=== PATIENT | male | born 1955 | race Caucasian/White ===

== ENCOUNTER 2024-08-21 14:34 | Inpatient (IN) | payer MEDICARE, SELFPAY ==
[2024-08-21] VITALS (9 sets, daily range): BP systolic 140–221; BP diastolic 84–115; PULSE 73–96; RESP 12–20; TEMP 36.5–36.6; O2SAT 91–100
--- NOTE | ~2024-08-21 | XR_ITS ---
EXAMINATION: XR chest 2V Exam Date/Time: 08/21/2024 15:06 CDT HISTORY: chest pain Comparison: 01/17/2024. RESULT: Lines, tubes, and devices: None. Lungs and pleura: Mild streaky bibasilar atelectasis/scar, otherwise clear. Lateral view limited by low volumes and motion. Cardiomediastinal silhouette: Stable. Other: No acute osseous or upper abdominal finding. IMPRESSION: No acute cardiopulmonary process. Reviewed, dictated and finalized at location K.
--- NOTE | ~2024-08-21 | CT_ITS ---
EXAMINATION: CTA chest PE protocol DATE: 08/21/2024 20:29 INDICATION: CP TECHNIQUE: Computed tomography angiography (CTA) of the chest was performed with 100 mL Omnipaque-350 intravenous contrast timed to evaluate the pulmonary arteries. Coronal maximum intensity projection 3D-reconstructions were created by the technologist. The dose-length product (DLP) was 918.29 mGy-cm. Automated exposure control and iterative reconstruction technique were employed. COMPARISON: X-ray chest, same date; CT chest 04/22/2012. FINDINGS: Lung parenchyma and airways: Minimal medial right middle lobe and lingular atelectasis/scar. Scar in the medial right lower lobe. Patent airways. Pleura: Unremarkable. Thoracic inlet, axillae and chest wall: Unremarkable. Thoracic aorta: No significant dilation. No dissection. Mediastinum: Normal. Heart and pericardium: Mitral and aortic valve calcifications. Coronary artery calcifications: Moderate. Upper abdomen: No significant finding. Bones: No acute osseous finding. Pulmonary arteries: Study quality: Adequate. No pulmonary emboli detected. IMPRESSION: No CT evidence of acute pulmonary embolus. No acute process detected in the chest. Reviewed, dictated and finalized at location K.
--- NOTE | 2024-08-21 14:40 | ECG_ITS ---
Test Date: 2024-08-21 14:42:57 Measurements Intervals [place] Rate: 94 P: 2 WV: 122 QRS: 34 QRSD: 101 T: 67 QT: 359 QTc: 449 Interpretive Statements SINUS RHYTHM BASELINE ARTIFACT- I, II, III, AVR, AVL, V4-V6 NORMAL ECG No previous ECG available for comparison Electronically Signed On 08-21-2024 14:52:34 CDT by Lit Osorio D.O.
[2024-08-21 14:52] LABS: Basophils Percent Auto 0.4 % (0.2-1.2); Eosinophils Absolute Auto 0.2 K/mm3 (0-0.3); Hematocrit 45.3 % (42.0-52.0); Hemoglobin 15.7 g/dL (14.0-18.0); Immature Granulocyte Absolute 0.11 K/mm3 (0.00-0.031); Lymphocytes Absolute Auto 1.73 K/mm3 (0.9-3.2); Mean Corpuscular HGB Conc 34.7 g/dl (32-36); Mean Corpuscular Hemoglobin 32.3 pg (26-34); Mean Corpuscular Volume 93.2 fl (80-100); Monocytes Absolute Auto 0.9 K/mm3 (0.1-0.6); Neutrophils Absolute Auto 7.9 K/mm3 (1.3-6.7); Neutrophils Percent Auto 72.6 % (45.5-73.1); Platelet Count Result 218 k/mm3 (150-375); Red Blood Count 4.86 M/mm3 (4.6-6.20); Red Cell Distribution Width 12.9 % (11.5-14.5); White Blood Count 10.8 K/mm3 (4.5-10.0)
[2024-08-21 15:07] LABS: INR 0.9; Prothrombin Time 12.4 Seconds (11.1-14.7)
[2024-08-21 15:08] LABS: Alanine Aminotransferase 27 U/L (6-50); Albumin Level 4.3 g/dL (3.5-5.1); Alkaline Phosphatase 107 U/L (38-126); Anion Gap 10 mmol/L (4-12); Aspartate Amino Transferase 27 U/L (17-59); Bilirubin,Total 0.5 mg/dL (0.2-1.3); Blood Urea Nitrogen 17 mg/dL (9-20); Calcium 9.3 mg/dL (8.4-10.2); Carbon Dioxide 26 mmol/L (22-30); Chloride 102 mmol/L (98-107); Estimated CRCL calculation 105 ml/min; Estimated Glomerular Filt Rate > 60; Glucose 236 mg/dL (65-110); Lipase 146 U/L (23-300); Partial Thromboplastin Time 24.5 Seconds (22.3-36.8); Potassium 4.1 mmol/L (3.4-5.0); Sodium 138 mmol/L (137-145)
[2024-08-21 15:20] LABS: Troponin I 0.021 ng/mL (0.000-0.034)
--- NOTE | 2024-08-21 18:00 | ECG_ITS ---
Test Date: 2024-08-21 21:47:44 Measurements Intervals [place] Rate: 84 P: 46 ME: 143 QRS: 50 QRSD: 102 T: 90 QT: 379 QTc: 449 Interpretive Statements SINUS RHYTHM SUBTLE INFERIOR ST ELEVATION MYOCARDIAL INJURY- ACUTE WITH RECIPROCAL ST DEPRESSION IN HIGH LATERAL LEADS ABNORMAL ECG Compared to ECG 08/21/2024 14:42:57 STEMI NOW PRESENT Electronically Signed On 08-22-2024 08:56:47 CDT by Lit Osorio D.O.
[2024-08-21 18:54] LABS: Troponin I 0.086 ng/mL (0.000-0.034)
--- NOTE | 2024-08-21 19:18 | ED.CHESTPAIN ---
HPI - Chest Pain General Chief Complaint: Chest Pain Stated Complaint: chest pain Time Seen by Provider: 08/21/24 19:05 History of Present Illness HPI narrative: Male with a past medical history significant for unprovoked DVT not presently on any anticoagulation, hypertension not present antihypertensive medications, GERD. Today patient presents to the emergency department a chief complaint of chest pain that is burning sensation, he was sitting at rest watching TV when he started having worsening chest pain and chest discomfort. This was associated with belching, nauseous without vomiting, shortness of breath but no diaphoresis. Symptoms are ongoing for several hours prompting him to seek medical evaluation at the ER. Denies any recent surgeries or long travel, notes that with food intake the symptoms got worse, denies any symptoms such as headache, vision change, neck pain, jaw pain, arm pain, extremity pain or weakness, neurological complaints. Was otherwise in his normal state of health. Related Data Home Medications Medication Instructions Recorded Confirmed fluticasone propionate 50 2 spray intranasal DAILY 07/26/22 08/22/24 mcg/actuation nasal spray,suspension (Flonase Allergy Relief) Allergies Allergy/AdvReac Type Severity Reaction Status Date / Time shellfish derived Allergy Intermediate Anaphylaxis Verified 08/21/24 19:07 doxycycline AdvReac Intermediate Unknown Verified 08/21/24 19:07 Review of Systems Review of Systems: As reviewed above in HPI [facility] Past Medical History Medical History (Updated 08/22/24 @ 06:05 by Erika Magaña DO) Allergic rhinitis Asthma DVT (deep venous thrombosis) (~2018) GERD (gastroesophageal reflux disease) Herpes labialis Surgical History Surgical History (Updated 08/22/24 @ 05:59 by Erika Magaña DO) History of heart artery stent (08/21/24) subtotal occlusion with placement of distal RCA drug-elutingstent Social History Social History (Updated 08/22/24 @ 06:02 by Erika Magaña DO) Social History: Code status: Full code Surrogate decision maker: Smoking status: Never smoker Alcohol intake: current Drinks per week: 2 Substance use: never Do You Feel Safe in your Home?: Yes Lack of Transportation: No Lack of Food: Never True Current Housing: I Have Housing Concerned About Future Housing: No Difficulty Paying Gas/Electric Bills: No Difficulty Paying for Meds: No Currently Unemployed: No Education: Associate Degree Difficulty w/ Childcare or Family Care: No Occupation/Education: retired Spiritual care concerns: No Agree to blood products: Yes Exam Narrative: GENERAL: Uncomfortable appearing but not in any acute distress, conversing in full sentences HEAD: [Normocephalic, atraumatic.] EYES: [PERRLA and EOMI.] ENT: Nares clear, no rhinorrhea or epistaxis. Mucous membranes moist. NECK: Supple. CHEST: [Clear to auscultation. No respiratory distress.] HEART: [Regular rate and rhythm]. No murmur heard. [Normal peripheral pulses.] ABDOMEN: [Soft, nondistended], [nontender], [No rigidity or guarding] EXTREMITIES: Normal range of motion. [No edema.] SKIN: Warm, dry, no rash. NEURO: [No focal deficits]. Alert and oriented [x3.] PSYCH: [Normal mood and affect.] Course Vital Signs Vital signs: Vital Signs Temperature 36.6 C 08/21/24 14:37 Pulse Rate 96 08/21/24 14:37 Respiratory Rate 16 08/21/24 14:37 Blood Pressure 217/84 H 08/21/24 14:37 Pulse Oximetry 98 08/21/24 14:37 Oxygen Delivery Room Air 08/21/24 14:37 Temperature 36.4 C 08/22/24 04:00 Pulse Rate 65 08/22/24 06:00 Respiratory Rate 15 08/22/24 06:00 Blood Pressure 137/91 H 08/22/24 07:00 Pulse Oximetry 98 08/22/24 06:00 Oxygen Delivery Room Air 08/22/24 04:00 Oxygen Flow Rate 2 08/21/24 22:24 MDM - Chest Pain MDM Narrative Medical decision making narrative:
[2024-08-21] MEDS: MORPHINE SULFATE (*CRX) 4 MG/ML INJ IV PUSH (19:59)
[2024-08-21] MEDS: hydrALAZINE HCL 20 MG/ML VIAL 10 MG IV PUSH (20:02)
[2024-08-21] MEDS: LACTATED RINGERS 1,000 ML 999 ML IV CONT (20:12)
[2024-08-21] MEDS: LORazepam (*CRX) 1 MG TABLET PO (20:39)
[2024-08-21] MEDS: HYDROmorphone HCL INJ (*CRX) 1 MG/ML SYR IV PUSH (20:40)
[2024-08-21] MEDS: ASPIRIN 325 MG TABLET PO (20:54)
[2024-08-21] MEDS: HEPARIN SOD/D5W 100 UNITS/ML 25,000 UNITS/250 ML BAG 10 UNITS IV CONT (21:32)
[2024-08-21 21:58] LABS: Basophils Absolute Auto 0.1 K/mm3 (0.0-0.1); Basophils Percent Auto 0.5 % (0.2-1.2); Eosinophils Absolute Auto 0.2 K/mm3 (0-0.3); Eosinophils Percent Auto 1.6 % (0-4.4); Hematocrit 46.6 % (42.0-52.0); Hemoglobin 15.7 g/dL (14.0-18.0); Immature Granulocyte Absolute 0.12 K/mm3 (0.00-0.031); Immature Granulocyte Percent A 1.1 % (0-0.5); Lymphocytes Absolute Auto 1.73 K/mm3 (0.9-3.2); Lymphocytes Percent Auto 15.8 % (18.3-44.2); Mean Corpuscular HGB Conc 33.7 g/dl (32-36); Mean Corpuscular Hemoglobin 31.3 pg (26-34); Monocytes Absolute Auto 1.2 K/mm3 (0.1-0.6); Monocytes Percent Auto 10.9 % (2.6-8.5); Neutrophils Absolute Auto 7.7 K/mm3 (1.3-6.7); Neutrophils Percent Auto 70.1 % (45.5-73.1); Platelet Count Result 228 k/mm3 (150-375); Red Blood Count 5.01 M/mm3 (4.6-6.20)
[2024-08-21 22:11] LABS: INR 0.9; Prothrombin Time 12.7 Seconds (11.1-14.7)
[2024-08-21 22:12] LABS: Partial Thromboplastin Time 24.4 Seconds (22.3-36.8)
--- NOTE | 2024-08-21 22:16 | PC.NURSE ---
BP 225/115. per [facility]OR[facility] Dr. Ochoa pt to receive 20mg labetolol.
[2024-08-21] MEDS: fentaNYL CITRATE INJ (*CRX) 100 MCG/2 ML VIAL IV PUSH (22:20)
--- NOTE | 2024-08-21 22:21 | PC.NURSE ---
STEMI called. Crash cart at bedside, 2nd IV access obtained, pt groin area shaved. 20mg Labetolol given.
[2024-08-21 22:37] LABS: Troponin I 0.158 ng/mL (0.000-0.034)
[2024-08-21] MEDS: LABETALOL HCL INJ 100 MG/20 ML VIAL (22:49)
--- NOTE | 2024-08-21 22:59 | PM.IMHP ---
H&P: HPI History of Present Illness Date/Time: 08/21/24 22:59 Chief Complaint: Chest pain, off and on for about 12 hours Narrative: 69-year-old male with history of uncontrolled hypertension; no known prior cardiac history. Patient presented to [facility] Emergency Room on 08/21/2024 with complaints of intermittent chest pain that started about 11:00 a.m. in the morning. His symptoms were associated with shortness of breath, dizziness without syncope. He denies any prior cardiac history. His initial EKG in the emergency room showed sinus rhythm without acute ST segment abnormality. Patient continued to have chest pain in the emergency room, and subsequent EKG on my personal interpretation showed sinus rhythm with ST elevation in the inferior leads with reciprocal ST depression. ER physician called me, and we activated the cardiac catheterization lab. chest x-ray was unremarkable. CTA chest was reportedly negative for aortic dissection or PE. At the time of evaluation the lab coordinator, patient had ongoing mild chest discomfort. Review of Systems Review of Systems: General: Negative for fever, chills, fatigue Psychological: Negative for anxiety, depression Ophthalmic: negative for loss of vision ENT: Negative for epistaxis, headaches Allergy and immunology: Negative for hives, nasal congestion Hematologic and lymphatic: Negative for overt bleeding problems Endocrine: Negative for hot flashes, palpitations Respiratory: Negative for cough, hemoptysis Cardiovascular: Positive for chest pain, shortness of breath, dizziness without syncope Gastrointestinal: Negative for abdominal pain, nausea, vomiting, hematochezia Musculoskeletal: Negative for myalgia, joint pains Neurological: Negative for weakness Dermatological: Negative for rash, skin discoloration PMFSH Past Medical History Medical History Allergic rhinitis Asthma DVT (deep venous thrombosis) GERD (gastroesophageal reflux disease) Herpes labialis Social History Social History Smoking status: Never smoker Alcohol intake: current Substance use: never Occupation/Education: retired Agree to blood products: Yes Meds Home Medications and Allergies Home Medications Medication Instructions Recorded Confirmed Type fluticasone propionate 50 2 spray intranasal DAILY 07/26/22 04/15/24 History mcg/actuation nasal spray,suspension (Flonase Allergy Relief) naproxen 500 mg tablet See Rx Instructions .Route 10/22/22 04/15/24 Rx .COMPLEX #60 tabs albuterol sulfate 90 mcg/actuation 2 inh inhalation Q4H PRN shortness 01/17/24 04/15/24 Rx aerosol inhaler of breath or wheezing #8.5 grams fluticasone 250 mcg-salmeterol 50 See Rx Instructions .Route 02/05/24 04/15/24 Rx mcg/dose blistr powdr for .COMPLEX #60 ea inhalation (Wixela Inhub) levofloxacin 750 mg tablet 750 mg PO DAILY #7 tabs 04/15/24 04/15/24 Rx montelukast 10 mg tablet 10 mg PO QHS #90 tabs 04/15/24 04/15/24 Rx (Singulair) acyclovir 800 mg tablet 800 mg PO BID #60 tabs 07/28/24 Rx levocetirizine 5 mg tablet See Rx Instructions .Route 08/12/24 Rx .COMPLEX #90 tabs levofloxacin 750 mg tablet 750 mg PO DAILY #7 tabs 08/13/24 Rx methylprednisolone 4 mg tablets in See Rx Instructions PO PER PKG DIR 08/13/24 Rx a dose pack (Medrol (Timothy)) #21 ea benzonatate 100 mg capsule 100 mg PO TID PRN cough #30 caps 08/17/24 Rx Allergies Allergy/AdvReac Type Severity Reaction Status Date / Time shellfish derived Allergy Intermediate Anaphylaxis Verified 08/21/24 19:07 doxycycline AdvReac Intermediate Unknown Verified 08/21/24 19:07 Vital Signs Vital Signs - 24 hr 08/21/24 14:37 08/21/24 19:30 08/21/24 19:31 Temperature 36.6 C Pulse Rate 96 86 86 Respiratory Rate 16 14 Blood Pressure 217/84 H 215/112 H Pulse Oximetry 98 98 Oxygen Delivery [place]
[2024-08-22] VITALS (25 sets, daily range): BP systolic 110–161; BP diastolic 72–130; PULSE 61–78; RESP 13–24; TEMP 36.4–37; O2SAT 96–100; BMI 38.5
--- NOTE | 2024-08-22 | ECHO_ITS ---
Patient Info Name: Duy Miller Age: 69 years : 1955 Gender: Male Ht: 72 in Wt: 273 lbs BSA: 2.55 m2 HR: 64 bpm BP: 132 / 98 mmHg Heart Rhythm: Sinus Rhythm Technical Quality: Good Exam Date: 08/22/2024 8:51 AM Exam Location: Echo Lab Patient Status: Inpatient Admit Date: 08/21/2024 Staff Ordering Physician: Ger Muller MD Airline Lounge Receptionist: Sita Bolden RDCS Attending Provider: Erika Magaña DO Referring Physician: Renzo LI; Exam Type: CA echo doppler color flow Study Info Indications - CP Complete two-dimensional, color flow and Doppler transthoracic echocardiogram is performed. Summary 1. Complete two-dimensional, color flow and Doppler transthoracic echocardiogram is performed. 2. Mild LV enlargement, moderate LVH; normal LV systolic function, ejection fraction measured at 57%. Grade 1 diastolic dysfunction. Mild left atrial enlargement. Mitral annular calcification, trace MR. Aortic valve sclerosis, no hemodynamically significant stenosis. Trace TR. RVSP 27 mmHg. Left Ventricle Left ventricular chamber dimension is mildly enlarged. There is moderately increased left ventricular wall thickness. The left ventricular diastolic function is grade I diastolic dysfunction. Right Ventricle Right ventricular chamber dimension is normal. Right ventricular systolic function is normal. Left Atria Left atrial chamber dimension is mildly enlarged. Right Atria Right atrial chamber dimension is normal. Aortic Valve There is mild aortic valve sclerosis. There is no aortic valve stenosis. Pulmonic Valve The pulmonic valve is not well visualized. Mitral Valve There is trace mitral valve regurgitation. The mitral valve annulus is mildly calcified. Tricuspid Valve The tricuspid valve leaflets are normal. There is trace tricuspid valve regurgitation. Pericardium/Pleural The pericardium appears normal. Inferior Vena Cava Normal inferior vena cava with >50% collapse upon inspiration consistent with normal right atrial pressure, 10 mmHg. Aorta There is mild aortic atherosclerosis. Left Ventricular Outflow Tract Name Value Normal LVOT 2D LVOT Diameter 2.2 cm LVOT Doppler LVOT Peak Gradient 5 mmHg LVOT Mean Gradient 3 mmHg LVOT VTI 24 cm LVOT VTI/AV VTI Ratio 0.8 LVOT Stroke Volume 86 ml LVOT CO 5.5 l/min LVOT CI 2.1 l/min/m2 Pulmonic Valve Name Value Normal PV Doppler PV Peak Gradient 3 mmHg Mitral Valve Name Value Normal MV Doppler
--- NOTE | 2024-08-22 00:02 | WPDCARDPROC ---
Cardiac Cath Procedure Note Date of procedure:: 08/22/24 Performing physician:: Seymour Limon MD Procedure Procedure note:: CARDIAC CATHETERIZATION AND PERCUTANEOUS CORONARY INTERVENTION REPORT DATE OF PROCEDURE: 08/21/2024 INDICATION FOR PROCEDURE: acute coronary syndrome /inferior ST-elevation NE BRIEF CLINICAL HISTORY: 69-year-old male with history of uncontrolled hypertension; no known prior cardiac history. Patient presented to [facility] Emergency Room on 08/21/2024 with complaints of intermittent chest pain that started about 11:00 a.m. in the morning. His symptoms were associated with shortness of breath, dizziness without syncope. He denied any prior cardiac history. His initial EKG in the emergency room showed sinus rhythm without acute ST segment abnormality. Patient continued to have chest pain in the emergency room, and subsequent EKG showed sinus rhythm with ST elevation in the inferior leads with reciprocal ST depression. ER physician called me, and we activated the cardiac catheterization lab. chest x-ray was unremarkable. CTA chest was reportedly negative for aortic dissection or PE. At the time of evaluation the lab support technician, patient had ongoing mild chest discomfort. Benefits and risks of the procedure were discussed with the patient in depth, and informed consent was obtained prior to the procedure. Risks of the procedure include but are not limited to vascular complications including groin hematoma, retroperitoneal bleed, vessel perforation; periprocedural NE, cardiac arrhythmias, stroke, contrast induced nephropathy, and . After discussing all the benefits, risks and alternatives, patient was willing to proceed with the procedure. PROCEDURES PERFORMED: 1. Emergent Left heart catheterization- Selective left and right coronary angiogram; left ventriculogram and hemodynamic assessment 2. Primary Percutaneous coronary intervention- a) balloon angioplasty and stenting of subtotal occlusion in the distal RCA using a 3.25 x 18 mm Xience everolimus eluting stent; b) intravascular ultrasound -IVUS of right coronary artery 3. Deployment of Mynx hemostatic device 4. Moderate sedation-CPT code 65987 and beyond MODERATE SEDATION: Midazolam 1 mg; fentanyl 25 mcg. Start time 2310 , Stop time 2347 ; Total [id number] time 37 minutes; Patricia Plascencia RN was trained observer for moderate sedation. ACCESS SITE: Right common femoral artery PROCEDURE NOTE: patient was emergently brought to catheterization lab and prepped and draped in a usual sterile manner. After local anesthesia with lidocaine, right common femoral artery access was taken with micropuncture needle followed by insertion of a 6 Colombian sheath. Selective left and right coronary angiogram was performed using 5 Colombian JL4 and 6 Colombian JR4 guide catheters respectively. Orthogonal views were taken. The JR4 guide catheter advanced in the LV cavity during attempted RCA engagement, LV pressure measured followed by LV gram using minimal dye. Gradient across aortic valve measured on the pullback. After completion of procedure, Mynx vascular closure device was deployed with good hemostasis. Patient tolerated procedure well without any immediate procedure related complications. FINDINGS: LEFT MAIN CORONARY: large caliber vessel, no angiographic significant focal stenosis LEFT ANTERIOR DESCENDING ARTERY: medium to large caliber vessel, minor plaque in the mid segment, becomes tortuous in the distal segment. No significant focal stenosis. Diagonal branches are small to medium caliber tortuous vessels. LEFT CIRCUMFLEX ARTERY: Large caliber, codominant vessel. Gives rise to tortuous medium to large caliber OM1 branch and medium caliber, tortuous LPDA. There is high-grade of 80-90% stenosis in the mid-distal segment of the LCX just proximal to the origin of the LPDA. RIGHT CORONARY ARTERY: Medium caliber vessel, tortuous, minor plaque in t
[2024-08-22] MEDS: SODIUM CHLORIDE 0.9% IV 1,000 ML 125 ML IV CONT (00:18)
--- NOTE | 2024-08-22 00:31 | ECG_ITS ---
Test Date: 2024-08-22 00:31:01 Measurements Intervals [place] Rate: 67 P: 24 VT: 140 QRS: 47 QRSD: 98 T: 80 QT: 436 QTc: 463 Interpretive Statements SINUS RHYTHM BORDERLINE ST-T WAVE ABNORMALITY- HIGH LATERAL LEADS BASELINE ARTIFACT- AVR, AVL, AVF BORDERLINE ECG Compared to ECG 08/21/2024 21:47:44 STEMI NO LONGER PRESENT Electronically Signed On 08-23-2024 08:59:43 CDT by Lit Osorio D.O.
[2024-08-22] MEDS: LOSARTAN POTASSIUM 25 MG TABLET PO ×2 (01:26→09:07)
[2024-08-22] MEDS: METOPROLOL TARTRATE 25 MG TABLET PO ×3 (01:27→20:21)
[2024-08-22] MEDS: ATORVASTATIN 40 MG TABLET 80 MG PO ×2 (01:27→20:21)
[2024-08-22 01:28] LABS: Hemoglobin A1C 6.3 % (<5.7)
--- NOTE | 2024-08-22 02:33 | ADMGEN ---
This patient, Duy Miller, was admitted to Intensive Care Unit-6 at 0018 from the chemical laboratory technician. Patient/family oriented to hospital policies and general routines including ID bracelet, bed and alarms, visiting hours, pain management, procedures, bathroom and other care routines, personal items, smoking policy, room service/diet, and visiting hours. Information on how to activate the Rapid Response Team has been discussed. Patient/Family are encouraged to report perceived risks to care and to ask questions if they do not understand what they are told or what they should do.
[2024-08-22 04:05] LABS: MRSA (PCR) NOT DETECTED (NOT DETECTE)
[2024-08-22 04:16] LABS: Basophils Percent Auto 0.4 % (0.2-1.2); Eosinophils Absolute Auto 0.1 K/mm3 (0-0.3); Eosinophils Percent Auto 1.2 % (0-4.4); Hematocrit 41.1 % (42.0-52.0); Hemoglobin 14.2 g/dL (14.0-18.0); Immature Granulocyte Absolute 0.06 K/mm3 (0.00-0.031); Immature Granulocyte Percent A 0.6 % (0-0.5); Lymphocytes Absolute Auto 1.55 K/mm3 (0.9-3.2); Lymphocytes Percent Auto 15.9 % (18.3-44.2); Mean Corpuscular HGB Conc 34.5 g/dl (32-36); Mean Corpuscular Volume 92.6 fl (80-100); Mean Platelet Volume 9.9 fl (7.4-10.4); Monocytes Percent Auto 10.2 % (2.6-8.5); Neutrophils Percent Auto 71.7 % (45.5-73.1); Platelet Count Result 196 k/mm3 (150-375); Red Blood Count 4.44 M/mm3 (4.6-6.20); White Blood Count 9.8 K/mm3 (4.5-10.0)
[2024-08-22 04:32] LABS: Alanine Aminotransferase 27 U/L (6-50); Albumin Level 3.7 g/dL (3.5-5.1); Alkaline Phosphatase 94 U/L (38-126); Anion Gap 4 mmol/L (4-12); Aspartate Amino Transferase 68 U/L (17-59); Bilirubin,Total 0.6 mg/dL (0.2-1.3); Blood Urea Nitrogen 10 mg/dL (9-20); Calcium 8.8 mg/dL (8.4-10.2); Carbon Dioxide 27 mmol/L (22-30); Chloride 102 mmol/L (98-107); Cholesterol 225 mg/dL (0-200); Estimated CRCL calculation 139 ml/min; Estimated Glomerular Filt Rate > 60; Glucose 135 mg/dL (65-110); HDL Direct 42 mg/dL; Potassium 4.1 mmol/L (3.4-5.0); Sodium 133 mmol/L (137-145); Triglycerides 210 mg/dL (<150)
[2024-08-22 04:40] LABS: LDL Cholesterol Direct 141 mg/dL
--- NOTE | 2024-08-22 05:48 | PM.IMHP ---
H&P: HPI History of Present Illness Date/Time: 08/22/24 05:48 Chief Complaint: Burning in my chest Narrative: 69-year-old male with past medical history essential hypertension with medication not adherent to medication regimen, GERD, urinary frequency and asthma who presented to the ER with burning chest pain While walking back from the mailbox. In hindsight the patient states that he likely has been having symptoms of dyspnea on exertion for at least 3-5 weeks. He blamed the symptoms on his insurance not paying for his usual inhalers. Dyspnea on exertion has been getting progressively worse. His son had commenced him to start swimming for exercise. Despite continuing with his exercise efforts multiple times a week patient was not making progress in his tolerance of activity. In fact his tolerance for exercise had been declining instead of improving. He denied having any palpitations, diaphoresis, lightheadedness or loss of consciousness. However yesterday when walking back for mailbox he developed a burning type chest pain around 11:00. As the day progressed his chest pain got progressively worse and was unrelenting. He felt quite unwell before he finally consented to come to the ER. The pain was worse with activity and was relieved when he was resting in under the air conditioning. He denies any associated nausea or vomiting. The patient reported they to not take blood pressure medications could he does not like how they make him feel. He has been having a weaker urinary stream and does have to get up to go to the bathroom at least 3 times a night. He also has some occasional dribbling of urine. He reports he has not been checked for BPH. When nursing staff tried to place Ellison catheter after his cardiac catheterization they were unable to place the Ellison catheter. Patient denies any dysuria, hematuria. He denies any changes in bowel habits, hematochezia or melena. His does reports the patient snores and she has witnessed episodes of gasping. The patient reports that he he snore sometimes so loudly that he wakes himself from sleep or startles himself awake. He does frequently have difficulty maintaining sleep. He reports that he has not had a return of his chest pain since coming back from the geotechnical laboratory technician. He does not have any significant family history for coronary artery disease. He is a lifelong nonsmoker. He does drink somewhat frequently but still in moderation. He denies illicit substance use. Review of Systems Review of Systems: 12 systems were reviewed with pertinent positives and negatives per HPI. Except as documented in the HPI, all other systems were reviewed and are negative. [facility] Past Medical History Medical History (Updated 08/22/24 @ 08:10 by Erika Magaña DO) Allergic rhinitis Asthma DVT (deep venous thrombosis) (~2018) GERD (gastroesophageal reflux disease) Herpes labialis Obesity (BMI 30-39.9) Surgical History Surgical History (Updated 08/22/24 @ 05:59 by Erika Magaña DO) History of heart artery stent (08/21/24) subtotal occlusion with placement of distal RCA drug-elutingstent Social History Social History (Updated 08/22/24 @ 08:11 by Erika Magaña DO) Social History: He lives at home with his of over 40 years. They have 1 son. He is a business services specialist sales. He is a lifelong nonsmoker. He does drink about 30 alcoholic beverages a month sometimes more. He denies history of illicit substance use. Code status: Full code Surrogate decision maker: Smoking status: Never smoker Alcohol intake: current Drinks per week: 2 Substance use: never Do You Feel Safe in your Home?: Yes Lack of Transportation: No Lack of Food: Never True Current Housing: I Have Housing Concerned About Future Housing: No Difficulty Paying Gas/Electric Bills: No Difficulty Paying for Meds: No Currently Unemployed: No Education: Associate Degree [place]
--- NOTE | 2024-08-22 08:38 | WPDCNINT ---
Assessment and Plan Assessment and plan (1) ST elevation (STEMI) myocardial infarction: Qualifiers: Involved coronary artery: right coronary artery Qualified Code(s): I21.11 - ST elevation (STEMI) myocardial infarction involving right coronary artery Code(s): I21.3 - ST elevation (STEMI) myocardial infarction of unspecified site Status: Acute Assessment and Plan: Status post cardiac catheterization which showed Primary Percutaneous coronary intervention- a) balloon angioplasty and stenting of subtotal occlusion in the distal RCA using a 3.25 x 18 mm Xience everolimus eluting stent; b) intravascular ultrasound -IVUS of right coronary artery 3. Deployment of Mynx hemostatic device 4. Moderate sedation-CPT code 66749 and beyond Continue aspirin Brilinta metoprolol losartan and Lipitor Check echocardiogram Telemetry monitoring (2) Snoring: Code(s): R06.83 - Snoring Status: Acute Assessment and Plan: Patient was encouraged to be evaluated for BISHOP. Patient monitor hospital (3) Severe uncontrolled hypertension: Code(s): I10 - Essential (primary) hypertension Status: Acute Assessment and Plan: Blood pressures improved after procedure and resolution of chest pain (4) Alcohol abuse: Code(s): F10.10 - Alcohol abuse, uncomplicated Status: Acute Assessment and Plan: Patient was counseled and encouraged to quit or cut down on alcohol intake Plan DVT prophylaxis -SCDs in bed. I anticipate patient will ambulate today. Nutrition -diet ordered Code Status - Full Code Senior Accounting Analyst Consult Note Consult date: 08/22/24 Reason for consult: STEMI HPI: Duy Miller is a 69 year old male past history of DVT, hypertension, GERD, allergies presented to ER with chief complaint of chest pain. Patient states that he has been having session of dyspnea and chest pain over last few days but yesterday morning started having chest pain while watching TV. It was burning in quality, associated with nausea but no vomiting. He also had shortness of breath but no diaphoresis. Pain continued 4 hours with variable severity. He decided to come to the ER. Patient states the pain went to be a cardiac procedure. Workup in the ER showed GGT ST elevation in inferior leads. Patient was diagnosed with STEMI and taken to cardiac catheterization lab where he had stent placed in his RCA. Postprocedure patient admitted to ICU for further evaluation management. This time patient denies any complaints and states chest pain has completely resolved. Review of system was positive for snoring. Patient denies fever, chest pain, shortness of breath, cough, nausea vomiting, abdominal pain,, diarrhea, headache or constipation. All other systems were reviewed and were negative Review of Systems Review of Systems: All systems reviewed & are unremarkable except as noted in HPI and below (HPI) [facility] Past Medical History Medical History (Updated 08/22/24 @ 08:10 by Erika Magaña, DO) Allergic rhinitis Asthma DVT (deep venous thrombosis) (~2018) GERD (gastroesophageal reflux disease) Herpes labialis Obesity (BMI 30-39.9) Surgical History Surgical History History of heart artery stent (08/21/24) subtotal occlusion with placement of distal RCA drug-elutingstent Social History Social History (Updated 08/22/24 @ 08:42 by Homar Stratton MD) Social History: He lives at home with his of over 40 years. They have 1 son. He is a business integration analyst. He is a lifelong nonsmoker. He denies history of illicit substance use. He states he drinks 4 times a week. On a regular day he will drink 2-5 beers but on special occasions our game days he can drink up to 8-9 beers. He rarely drinks hard liquor but occasionally drinks wine. Code status: Full code Surrogate decision maker: Smoking status: Never
[2024-08-22] MEDS: ASPIRIN 81 MG ENTERIC TABLET PO (09:06)
[2024-08-22] MEDS: FLUTICASONE PROPIONATE 0.05% NA SPR 16 GM BTL (*BKC) 2 SPRAY NASAL (09:07)
[2024-08-22] MEDS: TAMSULOSIN HCL 0.4 MG CAPSULE PO (09:07)
[2024-08-22] MEDS: TICAGRELOR 90 MG TABLET PO ×2 (09:09→20:21)
--- NOTE | 2024-08-22 09:19 | PM.IMPN ---
Progress Note: A&P Assessment and Plan (1) ST elevation (STEMI) myocardial infarction: Qualifiers: Involved coronary artery: right coronary artery Qualified Code(s): I21.11 - ST elevation (STEMI) myocardial infarction involving right coronary artery Code(s): I21.3 - ST elevation (STEMI) myocardial infarction of unspecified site Status: Acute Assessment and Plan: Patient presented with chest pain. CXR was unremarkable. CTA chest was negative for aortic dissection or PE. EKG was normal but repeat EKG showing subtle inferior ST elevation with depression in the high lateral leads. Cardiology consulted for STEMI alert and patient underwent emergent LHC. Cardiac catheterization showed high-grade, hazy about 90% stenosis in the distal RCA s/p balloon angioplasty and stenting of subtotal occlusion in the distal RCA using a 3.25 x 18 mm Xience everolimus eluting stent. Also noted was a high-grade of 80-90% stenosis in the mid-distal segment of the LCX just proximal to the origin of the LPDA. Plan for staged PCI of LCx in the near future. He has preserved LV systolic function with EF about 60%. Continue aspirin, Brilinta, metoprolol, losartan, and high-dose Lipitor Check echocardiogram Telemetry monitoring (2) Severe uncontrolled hypertension: Code(s): I10 - Essential (primary) hypertension Status: Acute Assessment and Plan: BP up on admission to 221/115. He was not on anti-HTN medications on admission. Blood pressures improved after procedure and resolution of chest pain as well as starting oral medications. Continue to monitor (3) Alcohol abuse: Code(s): F10.10 - Alcohol abuse, uncomplicated Status: Acute Assessment and Plan: Patient was counseled and encouraged to quit or cut down on alcohol intake (4) Snoring: Code(s): R06.83 - Snoring Status: Acute Assessment and Plan: Patient was encouraged to be evaluated for BISHOP. Plan DVT prophylaxis -SCDs Code Status - Full Code Subjective Date/time seen: 08/22/24 09:19 Interval history: 69yo male with HTN here for chest pain. No further chest pain. Slightly SOB. No n/v. Eating okay. Exam Narrative: AF 97.6 136/72 71 21 100% ra Gen - NARD sitting up in bed finishing breakfast Chest - CTA bilaterally, nml RR CV - RRR S1/S2. Tele showing brief runs (<8 beats) of NSVT Abd - Soft, obese, NT Ext - No pedal edema. 2+ DP pulses. right femoral site without obvious hematoma Neuro - Alert and appropriate Psych - Nml mood and affect Skin - Warm and dry Objective Data Vital Signs Vital Signs: Vital Signs - 24 hr 08/21/24 14:37 08/21/24 19:30 08/21/24 19:31 Temperature 97.8 F Pulse Rate 96 86 86 Respiratory Rate 16 14 Blood Pressure 217/84 H 215/112 H Pulse Oximetry 98 98 Oxygen Delivery Room Air Oxygen Flow Rate 08/21/24 19:31 08/21/24 20:44 08/21/24 21:25 Temperature 97.7 F Pulse Rate 73 83 Respiratory Rate 20 18 Blood Pressure 171/103 H 194/105 H Pulse Oximetry 98 99 100 Oxygen Delivery Room Air Oxygen Flow Rate 08/21/24 22:24 08/21/24 22:24 08/21/24 22:32 Temperature Pulse Rate 78 78 Respiratory Rate 12 18 Blood Pressure 221/115 H 140/95 H Pulse Oximetry 91 92 98 Oxygen Delivery Nasal Cannula Oxygen Flow Rate 2 08/21/24 22:41 08/21/24 22:49 08/22/24 01:27 Temperature Pulse Rate 74 91 66 Respiratory Rate 14 Blood Pressure 157/94 H Pulse Oximetry 98 Oxygen Delivery Oxygen Flow Rate 08/22/24 00:35 08/22/24 00:30 08/22/24 00:45 Temperature 97.8 F Pulse Rate 67 70 Respiratory Rate 16 16 Blood Pressure 155/96 H 142/99 H Pulse Oximetry 97 98 Oxygen Delivery Room Air Oxygen Flow Rate 08/22/24 01:00 08/22/24 01:15 08/22/24 02:00 Temperature Pulse Rate 67 66 62 Respiratory Rate 14 16 15 Blood Pressure 148/101 H 143/94 H 156/95 H Pulse Oximetry 98 97 99 Oxygen Delivery
--- NOTE | 2024-08-22 09:59 | PC.NURSE ---
[facility] flyer was given to patient.
--- NOTE | 2024-08-22 10:50 | PM.PNCARD ---
Progress Note: A&P Assessment and Plan (1) ST elevation (STEMI) myocardial infarction: Qualifiers: Involved coronary artery: right coronary artery Qualified Code(s): I21.11 - ST elevation (STEMI) myocardial infarction involving right coronary artery Code(s): I21.3 - ST elevation (STEMI) myocardial infarction of unspecified site Status: Acute Assessment and Plan: -dual antiplatelet therapy with aspirin and ticagrelor (meds to bed arrange for ticagrelor); high-dose atorvastatin. -blood pressure elevated at presentation; initiated on metoprolol tartrate and losartan -staged PCI LCX in near future -may transfer to step-down unit (2) Alcohol abuse: Code(s): F10.10 - Alcohol abuse, uncomplicated Status: Acute Assessment and Plan: Patient was counseled to either completely quit or cut down on alcohol intake (3) Snoring: Code(s): R06.83 - Snoring Status: Acute Assessment and Plan: Outpatient was evaluation Plan Plan discussed with the patient and his . Patient wanted to be discharged home today, advised him to stay another night for observation and he is in agreement. Subjective Date/time seen: 08/22/24 10:50 Interval history: Date of service: 08/14/2024 Interval history: Reports resolution of chest pain. No shortness of breath. On telemetry, patient has been in sinus rhythm. Review of Systems Review of Systems: General: Negative for fever, chills, fatigue Psychological: Negative for anxiety, depression Ophthalmic: negative for loss of vision ENT: Negative for epistaxis, headaches Allergy and immunology: Negative for hives, nasal congestion Hematologic and lymphatic: Negative for overt bleeding problems Endocrine: Negative for hot flashes, palpitations Respiratory: Negative for cough, hemoptysis Cardiovascular: Chest pain resolved Gastrointestinal: Negative for abdominal pain, nausea, vomiting, hematochezia Musculoskeletal: Negative for myalgia, joint pains Neurological: Negative for weakness Dermatological: Negative for rash, skin discoloration Exam Narrative: PHYSICAL EXAMINATION: GENERAL: Obese, Alert, oriented, no acute distress MENTAL STATUS: affect appropriate to mood EYES: Extraocular movements intact, no pallor EARS: External ears appear normal, hearing grossly normal NOSE: Normal and patent, no discharge MOUTH: Mucous membranes moist, tongue normal NECK: Supple, no JVD CHEST: Good respiratory effort, clear to auscultation HEART: Normal rate, regular rhythm, normal S1 and S2, S4 gallop ABDOMEN: Soft, nontender NEUROLOGICAL: Alert, oriented, normal speech, no gross motor deficits MUSCULOSKELETAL: Right groin site unremarkable EXTREMITIES: No pedal edema, no clubbing, no cyanosis SKIN: no rash on the exposed area, no cyanosis PSYCHIATRIC: Normal mood, appropriate affect Objective Data Vital Signs Vital Signs: Vital Signs - 24 hr 08/21/24 14:37 08/21/24 19:30 08/21/24 19:31 Temperature 36.6 C Pulse Rate 96 86 86 Respiratory Rate 16 14 Blood Pressure 217/84 H 215/112 H Pulse Oximetry 98 98 Oxygen Delivery Room Air Oxygen Flow Rate 08/21/24 19:31 08/21/24 20:44 08/21/24 21:25 Temperature 36.5 C Pulse Rate 73 83 Respiratory Rate 20 18 Blood Pressure 171/103 H 194/105 H Pulse Oximetry 98 99 100 Oxygen Delivery Room Air Oxygen Flow Rate 08/21/24 22:24 08/21/24 22:24 08/21/24 22:32 Temperature Pulse Rate 78 78 Respiratory Rate 12 18 Blood Pressure 221/115 H 140/95 H Pulse Oximetry 91 92 98 Oxygen Delivery Nasal Cannula Oxygen Flow Rate 2 08/21/24 22:41 08/21/24 22:49 08/22/24 01:27 Temperature Pulse Rate 74 91 66 Respiratory Rate 14 Blood Pressure 157/94 H Pulse Oximetry 98 Oxygen Delivery Oxygen Flow Rate 08/22/24 00:35 08/22/24 00:30 08/22/24 00:45 Temperature 36.6 C Pulse Rate 67 70 Respiratory Rat
--- NOTE | 2024-08-22 15:23 | PC.NURSE ---
Addendum entered by Teresa Frausto RN 08/22/24 19:06: Brilinta handed to patient. Patient education preformed. Both patient and aware of Brilinta at bedside per prescription. Patient also in possesion of stent card post cath. Original Note: Patients Brilinta brought to facility by [facility]. Patient instructed on prescription including how and when to take medication and importance of taking prescribed medications as advised by their doctor.
[2024-08-22] MEDS: FLUTICASONE/SALMETEROL 115-21 MCG INHALER 1 PUFF 2 PUFF INHALATION (20:43)
[2024-08-23] VITALS (12 sets, daily range): BP systolic 111–139; BP diastolic 63–91; PULSE 63–77; RESP 14–18; TEMP 36.2–36.9; O2SAT 95–98
--- NOTE | 2024-08-23 06:34 | PC.NURSE ---
This patient, Duy Miller, was received from [ ICU 6] on 08/23/24 at 0614. Patient/family oriented to unit policies and routines
[2024-08-23] MEDS: FLUTICASONE/SALMETEROL 115-21 MCG INHALER 1 PUFF 2 PUFF INHALATION (07:21)
[2024-08-23] MEDS: ASPIRIN 81 MG ENTERIC TABLET PO (08:42)
[2024-08-23] MEDS: METOPROLOL TARTRATE 25 MG TABLET PO (08:42)
[2024-08-23] MEDS: TICAGRELOR 90 MG TABLET PO (08:42)
[2024-08-23] MEDS: TAMSULOSIN HCL 0.4 MG CAPSULE PO (08:43)
[2024-08-23] MEDS: LOSARTAN POTASSIUM 25 MG TABLET PO (08:43)
[2024-08-23 09:01] LABS: Anion Gap 5 mmol/L (4-12); Blood Urea Nitrogen 11 mg/dL (9-20); Calcium 8.7 mg/dL (8.4-10.2); Carbon Dioxide 29 mmol/L (22-30); Chloride 102 mmol/L (98-107); Estimated CRCL calculation 116 ml/min; Estimated Glomerular Filt Rate > 60; Glucose 188 mg/dL (65-110); Potassium 4.2 mmol/L (3.4-5.0); Sodium 136 mmol/L (137-145)
[2024-08-23] MEDS: FLUTICASONE PROPIONATE 0.05% NA SPR 16 GM BTL (*BKC) 2 SPRAY NASAL (09:02)
--- NOTE | 2024-08-23 10:30 | PM.PNCARD ---
Progress Note: A&P Assessment and Plan (1) ST elevation (STEMI) myocardial infarction: Qualifiers: Involved coronary artery: right coronary artery Qualified Code(s): I21.11 - ST elevation (STEMI) myocardial infarction involving right coronary artery Code(s): I21.3 - ST elevation (STEMI) myocardial infarction of unspecified site Status: Acute Assessment and Plan: - Stable, no recurrent chest discomfort. - medical treatment includes dual antiplatelet therapy with aspirin and ticagrelor (meds to bed has been arranged for ticagrelor); high-dose atorvastatin. -blood pressure elevated at presentation; initiated on metoprolol tartrate and losartan -staged PCI LCX in near future. Patient will call our office and make an appointment. Follow-up appointment was provided to the patient. - Okay to discharge home from cardiac standpoint. -Plan discussed with the patient and the primary team (2) Alcohol abuse: Code(s): F10.10 - Alcohol abuse, uncomplicated Status: Acute Assessment and Plan: Patient was counseled to either completely quit or cut down on alcohol intake (3) Snoring: Code(s): R06.83 - Snoring Status: Acute Assessment and Plan: Outpatient was evaluation Subjective Date/time seen: 08/23/24 10:30 Interval history: Date of service: 08/14/2024 Interval history: Reports resolution of chest pain. No shortness of breath. On telemetry, patient has been in sinus rhythm. 08/23/2024- patient doing well, no recurrent chest pain. Eager to go home. In sinus rhythm on telemetry. Patient's are present at the time of evaluation. Review of Systems Review of Systems: General: Negative for fever, chills, fatigue Psychological: Negative for anxiety, depression Ophthalmic: negative for loss of vision ENT: Negative for epistaxis, headaches Allergy and immunology: Negative for hives, nasal congestion Hematologic and lymphatic: Negative for overt bleeding problems Endocrine: Negative for hot flashes, palpitations Respiratory: Negative for cough, hemoptysis Cardiovascular: Chest pain resolved Gastrointestinal: Negative for abdominal pain, nausea, vomiting, hematochezia Musculoskeletal: Negative for myalgia, joint pains Neurological: Negative for weakness Dermatological: Negative for rash, skin discoloration Exam Narrative: PHYSICAL EXAMINATION: GENERAL: Obese, Alert, oriented, no acute distress MENTAL STATUS: affect appropriate to mood EYES: Extraocular movements intact, no pallor EARS: External ears appear normal, hearing grossly normal NOSE: Normal and patent, no discharge MOUTH: Mucous membranes moist, tongue normal NECK: Supple, no JVD CHEST: Good respiratory effort, clear to auscultation HEART: Normal rate, regular rhythm, normal S1 and S2, S4 gallop ABDOMEN: Soft, nontender NEUROLOGICAL: Alert, oriented, normal speech, no gross motor deficits MUSCULOSKELETAL: Right groin site unremarkable EXTREMITIES: No pedal edema, no clubbing, no cyanosis SKIN: no rash on the exposed area, no cyanosis PSYCHIATRIC: Normal mood, appropriate affect Objective Data Vital Signs Vital Signs: Vital Signs - 24 hr 08/22/24 12:00 08/22/24 12:00 08/22/24 14:00 Temperature 36.8 C Pulse Rate 69 69 66 Respiratory Rate 13 Blood Pressure 134/83 Pulse Oximetry 99 Oxygen Delivery 08/22/24 14:00 08/22/24 16:00 08/22/24 18:00 Temperature 36.9 C Pulse Rate 65 76 72 Respiratory Rate 18 16 18 Blood Pressure 132/84 129/98 H 110/82 Pulse Oximetry 98 100 96 Oxygen Delivery 08/22/24 16:00 08/22/24 18:00 08/22/24 20:21 Temperature Pulse Rate 75 74 74 Respiratory Rate Blood Pressure Pulse Oximetry Oxygen Delivery 08/22/24 20:43 08/22/24 20:52 08/22/24 20:00 Temperature 37.0 C Pulse Rate 73 72 Respiratory Rate 24 H 16 Blood Pressure 110/89 Pulse Oximetry 96 97 Oxygen
--- NOTE | 2024-08-23 11:24 | PM.DS ---
DS: Admitting Diagnosis Discharge Date 08/23/24 Admitting Diagnosis Chest pain DS: Discharge Diagnosis Discharge Diagnosis (1) ST elevation (STEMI) myocardial infarction: Qualifiers: Involved coronary artery: right coronary artery Qualified Code(s): I21.11 - ST elevation (STEMI) myocardial infarction involving right coronary artery Code(s): I21.3 - ST elevation (STEMI) myocardial infarction of unspecified site Status: Acute (2) Severe uncontrolled hypertension: Code(s): I10 - Essential (primary) hypertension Status: Acute (3) Alcohol abuse: Code(s): F10.10 - Alcohol abuse, uncomplicated Status: Acute (4) Snoring: Code(s): R06.83 - Snoring Status: Acute DS: Summary Hospital Course Reason for hospitalization: 69yo male with HTN here for chest pain. Please see H&P for details. Hospital Course: Patient presented with chest pain. CXR was unremarkable. CTA chest was negative for aortic dissection or PE. Initial EKG was normal but repeat EKG showing subtle inferior ST elevation with depression in the high lateral leads. Cardiology consulted for STEMI alert and patient underwent emergent LHC. Cardiac catheterization showed high-grade, hazy about 90% stenosis in the distal RCA s/p balloon angioplasty and stenting of subtotal occlusion in the distal RCA using a 3.25 x 18 mm Xience everolimus eluting stent. Also noted was a high-grade of 80-90% stenosis in the mid-distal segment of the LCX just proximal to the origin of the LPDA. Plan for staged PCI of LCx in the near future. He has preserved LV systolic function with EF about 60%. Echo showing mild LV enlargement, moderate LVH; normal LV systolic function with EF at 57%. Grade 1 diastolic dysfunction. Mild left atrial enlargement. Mitral annular calcification with trace MR. Aortic valve sclerosis but no hemodynamically significant stenosis. Trace TR. RVSP 27 mmHg. He was started on aspirin, Brilinta, metoprolol, losartan, and high-dose Lipitor. BP up on admission was up to 221/115. He was not on anti-HTN medications on admission. Blood pressures improved after the procedure with resolution of chest pain and after starting oral medications. Patient was counseled and encouraged to quit or cut down on alcohol intake. Patient snores at home. Apnea link showing AHI 17.7 and RI 20.8. No hypoxia noted overnight. Patient was encouraged to be evaluated for BISHOP. Patient has weak urinary stream may and nocturia. Nursing staff had difficulty passing Ellison catheter. He was started on Flomax for suspected BPH. The importance of compliance with medication therapy including dual antiplatelet therapy and antihypertensive therapy was discussed with patient and his who was at bedside. He overall did well and was able to be discharged home on 08/23/24. Status at Discharge Cognitive/behavioral status at discharge: stable Time Spent with Patient Time attestation: Total time spent providing and/or coordinating discharge services: 35 minutes Time spent: Greater than 30 minutes Exam Narrative: AF 98.0 138/69 66 18 96% ra Gen - NARD Chest - CTA bilaterally, nml RR CV - RRR S1/S2. Tele showing no significant dysrhythmias Abd - Soft, obese, NT Ext - No pedal edema. Right femoral site without obvious hematoma Neuro - Alert and appropriate Psych - Nml mood and affect Skin - Warm and dry DS: Data Data Completed and Pending Labs on day of discharge: Labs from last 24 hours 08/23/24 08:36 Sodium 136 L Potassium 4.2 Chloride 102 Carbon Dioxide 29 Anion Gap 5 BUN 11 Creatinine 0.70 Estim Creat Clear Calc 116 Estimated GFR > 60 Glucose 188 H Calcium 8.7 Discharge Plan Discharge Attending physician on discharge: Miko Boyer Consulting providers: Seymour Limon Discharging Clinician: Miko Boyer Anticipated Discharge Date/Time: 08/23/24 11:32 Patient Dispo
== END 2024-08-23 12:32 | disposition home or self-care (01) | DRG 322 ==
LOC: ANHED 19:16 → ANHIMU 22:32 → ANHICU 08-22 00:29 → ANHIMU 08-23 11:36 → ANHICU 08-25 08:33 → ANHIMU 08-25 08:33
PROVIDERS: Internal Medicine Cardiovascular Disease; Preventive Medicine Aerospace Medicine; Admitting Provider Internal Medicine; Emergency Provider Student in an Organized Health Care Education/Training Program; PCP Nurse Practitioner Family; Visit Provider Internal Medicine
PROC: 4A023N7 Measurement of Cardiac Sampling and Pressure, Left Heart, Percutaneous Approach (ICD-10-PCS; CPT 93452; principal; 2024-08-21 22:20)
PROC: 4A023N7 Measurement of Cardiac Sampling and Pressure, Left Heart, Percutaneous Approach (ICD-10-PCS; 2024-08-21 22:20)
PROC: 4A023N7 Measurement of Cardiac Sampling and Pressure, Left Heart, Percutaneous Approach (ICD-10-PCS; 2024-08-21 22:20)
PROC: 4A023N7 Measurement of Cardiac Sampling and Pressure, Left Heart, Percutaneous Approach (ICD-10-PCS; 2024-08-21 22:20)
DX: I21.11 ST elevation (STEMI) myocardial infarction involving right coronary artery (principal); E66.9 Obesity, unspecified; E78.2 Mixed hyperlipidemia; F10.10 Alcohol abuse, uncomplicated; I10 Essential (primary) hypertension; I25.10 Atherosclerotic heart disease of native coronary artery without angina pectoris; J45.909 Unspecified asthma, uncomplicated; K21.9 Gastro-esophageal reflux disease without esophagitis; R35.0 Frequency of micturition; R06.83 Snoring; R73.09 Other abnormal glucose; Z68.35 Body mass index [BMI] 35.0-35.9, adult; Z86.718 Personal history of other venous thrombosis and embolism
CPT/HCPCS: 36415; 71046; 71275; 80048; 80053; 80061; 83036; 83690; 84484; 85025; 85610; 85730; 87641; 92978; 93005; 93306; 93458; 94640; 94762; 96374; 96375; 99285; A9270; C1725; C1753; C1760; C1769; C1874; C1887; C1894; C9606; G0269; J0360; J0583; J1170; J1644; J2250; J2270; J3010; J7030; J7040; J7120; Q9967